=== PATIENT | male | born 1970 | race Caucasian/White ===

== ENCOUNTER → 2023-09-26 09:12 | Outpatient (REF) | payer BC, SELFPAY | LOC: REG 09:12 | PROVIDERS: ATTENDING PHYSICIAN Family Medicine | DX: E03.9 Hypothyroidism, unspecified (principal) | CPT/HCPCS: 36415; 84443 ==

== ENCOUNTER → 2024-02-06 07:51 | Outpatient (REF) | payer BC, SELFPAY ==
[2024-02-06 08:57] LABS: Uric Acid 6.5 mg/dl (3.5-8.5)
[2024-02-06 09:25] LABS: TSH 2.44 uIU/ml (0.47-4.68)
== END ==
LOC: REG 07:51
PROVIDERS: ATTENDING PHYSICIAN Specialist; FAMILY PHYSICIAN Family Medicine
DX: E79.0 Hyperuricemia without signs of inflammatory arthritis and tophaceous disease (principal); E03.9 Hypothyroidism, unspecified
CPT/HCPCS: 36415; 84443; 84550

== ENCOUNTER → 2024-06-04 08:45 | Outpatient (REF) | payer BC, SELFPAY ==
[2024-06-04 09:58] LABS: % Basophils 0.5 % (0-2); % Eosinophils 2.1 % (0-6); % Immature Granulocytes 0.2 % (0-0.5); % Lymphocytes 28.7 % (20.5-51.1); % Neutrophils 60.5 % (42.2-75.2); Absolute Eosinophils 0.1 10^3/uL (0-0.7); Absolute Lymphocytes 1.3 10^3/uL (1.2-3.4); Absolute Monocytes 0.4 10^3/uL (0.1-0.6); Absolute Neutrophils 2.6 10^3/uL (1.4-6.5); Hematocrit 45.7 % (39.0-52.0); Hemoglobin 15.9 g/dL (13.0-18.0); Mean Corp Hgb Conc. 34.8 g/dL (33.0-37.0); Mean Corpuscular Hgb 30.3 pg (27.0-31.0); Mean Corpuscular Volume 87.2 fL (80.0-94.0); Mean Platelet Volume 9.7 fL (7.4-10.4); Nucleated Red Blood Cells % 0 % (-); Platelet Count 200 10^3/uL (130-400); Red Blood Cell Count 5.24 10^6/uL (4.70-6.10); Red Cell Dist. Width 12.8 % (11.5-14.5); White Blood Cell Count 4.4 10^3/uL (4.8-10.8)
[2024-06-04 10:12] LABS: ALT (SGPT) 54 U/L (0-50); AST (SGOT) 39 U/L (17-59); Albumin 4.8 g/dl (3.5-5.0); Alkaline Phosphatase 71 U/L (38-126); Blood Urea Nitrogen 27 mg/dl (9-20); Calcium 10.3 mg/dl (8.4-10.2); Carbon Dioxide 29 mmol/L (22-30); Chloride 103 mmol/L (98-107); Glucose 108 mg/dl (70-99); HDL Cholesterol 67 mg/dl; LDL Cholesterol, Calculated 96 mg/dl; Potassium 4.3 mmol/L (3.5-5.1); Sodium 142 mmol/L (135-145); Total Bilirubin 0.8 mg/dl (0.2-1.3); Total Cholesterol 189 mg/dl (50-199); Total Protein 7.4 g/dl (6.3-8.2); Triglyceride 131 mg/dl (10-149); Uric Acid 6.5 mg/dl (3.5-8.5); Very Low Density Lipoprotein 26 mg/dl (0-30); eGFR 47.02
[2024-06-04 10:44] LABS: PSA, Total - Screen 2.62 ng/ml (0.0-4.0)
== END ==
LOC: REG 08:45
PROVIDERS: ATTENDING PHYSICIAN Family Medicine
DX: E03.9 Hypothyroidism, unspecified (principal); N18.31 Chronic kidney disease, stage 3a; E79.0 Hyperuricemia without signs of inflammatory arthritis and tophaceous disease; I10 Essential (primary) hypertension
CPT/HCPCS: 36415; 80053; 80061; 84443; 84550; 85025; G0103

== ENCOUNTER → 2024-10-28 12:37 | Outpatient (REF) | payer BC, SELFPAY | LOC: MRI 3T 12:37 | PROVIDERS: ATTENDING PHYSICIAN Physician Assistant Surgical; FAMILY PHYSICIAN Family Medicine | DX: S43.004A Unspecified dislocation of right shoulder joint, initial encounter (principal); S49.91XA Unspecified injury of right shoulder and upper arm, initial encounter | CPT/HCPCS: 73221 ==

== ENCOUNTER → 2024-10-28 13:46 | Outpatient (REF) | payer BC, SELFPAY | LOC: RAD 13:46 | PROVIDERS: ATTENDING PHYSICIAN Internal Medicine Critical Care Medicine; FAMILY PHYSICIAN Family Medicine | DX: R91.1 Solitary pulmonary nodule (principal) | CPT/HCPCS: 71046 ==

== ENCOUNTER 2024-10-31 20:27 | Emergency (ER) | payer BC, SELFPAY ==
[2024-10-31 20:29] VITALS: BP 144/86
--- NOTE | 2024-10-31 21:51 | ED.GENMED ---
History of Present Illness
General
Chief Complaint: DVT/Possible Blood Clot
Source: patient
Time Seen by Provider: 10/31/24 21:18
History of Present Illness
History of Present Illness:
54-year-old male with past medical history of hypertension, hyperlipidemia, hypothyroidism presenting to the emergency department for evaluation of right upper extremity paresthesia and edema in the setting of recently dislocated shoulder back in
August, has follow-up scheduled with Dr. Edwards towards the end of this month, patient stating he believes he will need surgery to prevent any further dislocations. He notes that he has been wearing his sling since the dislocation. Patient was concern
for DVT due to the after mentioned symptoms. Denies any history of similar. No new traumas to the affected area. No fevers or infectious symptoms.
Past History
Past History
ED Past Medical History: HTN, Hypercholesterolemia and Hypothyroidism; Negative IDDM or NIDDM
ED Past Surgical History: None
Social History
Tobacco: Non-smoker
Alcohol: None
Drug: None
Personal:
Living: with family
Employment: Employed (office work )
Review of Systems
Review of Systems
All Other Systems: ROS reviewed and negative except as documented in HPI and ROS
Phy Exam
Physical Exam
Physical Exam:
GENERAL: Alert , in no apparent distress
EYE: conjunctiva clear
Head: Normocephalic atraumatic
NECK: Supple,
ENT: mmm.
LUNGS: no acute respiratory distress
NEUROLOGICAL: Alert and oriented
SKIN: Warm and dry, skin intact.
MUSCULOSKELETAL: Right upper extremity: Patient holding arm adducted with elbow at 90 degrees and against his chest/abdomen. There does appear to be some mild nonpitting soft tissue swelling to the dorsum of the hand but patient has an easily
palpable radial pulse. Cap refills less than 2 seconds and sensation is grossly intact to light touch throughout
PSYCH: Normal and appropriate interaction.
Scores
Heart Failure Risk
Heart Failure Risk Score: Not Applicable
Heart Score for Chest Pain Patients
STEMI patient?: Not applicable
Withdrawal Assessment of Alcohol
Withdrawal Assessment Completed?: Not applicable
Course
Orders/Labs/Results
Orders:
Orders
10/31/24 20:34
Periph Venous Upr Ext Right US [US Periph Venous UPPER Ext RT] Urgent
Comment:
Reason For Exam: RIGHT ARM IMMOBILIZED SINCE 09/08 SWELLING TINGLING
Vital Signs
Initial and Last Documented VS:
Initial Vital Signs
Temp Resp BP Pulse Ox
97.6 F 20 144/86 98
10/31/24 20:29 10/31/24 20:29 10/31/24 20:29 10/31/24 20:29
Last Documented Vital Signs
Temp Resp BP Pulse Ox
97.6 F 20 144/86 98
10/31/24 20:29 10/31/24 20:29 10/31/24 20:29 10/31/24 21:52
MDM/Problems Addressed
Differential Diagnosis Includes:
Paresthesia from shoulder dislocation
Brachial Plexus injury
Peripheral neuropathy
DVT
Carpal Tunnel
Thoracic Outlet Syndrome
MDM/Problems Addressed:
54-year-old male presenting to the emergency department for evaluation of some swelling and paresthesia to the right upper extremity in the setting of a recently dislocated right shoulder. Patient has been wearing a sling to prevent further
dislocation/subluxation. Ultrasound was ordered from triage and is negative for DVT/SVT. Patient is otherwise neurovascularly intact. I do suspect most of his symptoms are all related to the shoulder dislocation, discussed possibility for
brachial plexus injury although there are no focal neurologic deficits to the extremity. Patient already has follow-up appointment with orthopedics scheduled. Continue using sling. Aware of return precautions.
*Radiology
Radiology exam reviewed: radiology read reviewed (Negative DVT)
*Pulse Oximetry
SaO2: 98
Oxygen Mode of Delivery: Room air
Patient hypoxic: no
*Critical Care Note
Total Time (30-74mins, 75-104mins- exclusive of procedures): Not Applicable
ED Attending Note
-
Portions of this chart may have been created with voice recognition software.� Occasional wrong word or��sound alike� substitutions may have occurred due to the inherent limitations of voice recognition software.
Discharge Plan
Departure
Patient Disposition: Home (Routine Discharge)
Date of Disposition: 10/31/24
Time of Disposition: 21:52
Patient with high blood pressure during this ER visit?: Yes
Discharge Problem:
Paresthesia of skin, Edema of right upper extremity
Instructions: Shoulder Dislocation (DC)
Prescriptions:
No Action
atorvastatin 10 MG tablet
20 mg PO DAILY
losartan 50 mg Tablet
50 mg PO DAILY
amlodipine 10 mg Tablet
10 mg PO DAILY
levothyroxine 125 mcg Capsule
125 mcg PO DAILY
Lumigan 0.01 % Drops
1 drp OPHTHALMIC (EYE) QPM
allopurinol 200 mg Tablet
200 mg PO DAILY
Referrals:
Francesco Quezada MD [Family Provider, Family Practice]
Interventions
Interventions:
*Risk Screen - Suicide Last Done: 10/31/24 20:29
*General Assessment Last Done: 10/31/24 21:50
*Neglect/Abuse Screening Last Done: 10/31/24 20:29
*ED- Fall Risk Assessment Last Done: 10/31/24 21:50
*ED COVID-19 Vaccine History Last Done: 10/31/24 21:50
*Nursing Disposition Last Done: 10/31/24 21:56
ED-Peripheral Vascular Assessment Last Done: 10/31/24 21:50
Discharge Date and Time
Discharge Date/Time: 10/31/24 21:56
Print Language: BRITISH
== END 2024-10-31 21:56 | disposition home or self-care (01) ==
LOC: EMR 20:27
PROVIDERS: EMERGENCY PHYSICIAN Emergency Medicine; FAMILY PHYSICIAN Family Medicine
DX: R20.2 Paresthesia of skin (principal); R60.0 Localized edema; I10 Essential (primary) hypertension; E78.00 Pure hypercholesterolemia, unspecified; E03.9 Hypothyroidism, unspecified
CPT/HCPCS: 99284; 93971

== ENCOUNTER 2024-12-23 08:32 | Outpatient (RCR) | payer BC, SELFPAY | END 2024-12-23 23:59 | disposition home or self-care (01) | LOC: RPT 08:32 | PROVIDERS: ATTENDING PHYSICIAN Specialist; FAMILY PHYSICIAN Family Medicine | DX: M24.411 Recurrent dislocation, right shoulder (principal); M75.121 Complete rotator cuff tear or rupture of right shoulder, not specified as traumatic; M75.01 Adhesive capsulitis of right shoulder; Z73.6 Limitation of activities due to disability; M25.511 Pain in right shoulder | CPT/HCPCS: 97010; 97110; 97140; 97162; 97530 ==

== ENCOUNTER 2025-01-18 13:22 | Outpatient (RCR) | payer BC, SELFPAY | END 2025-01-18 23:59 | disposition home or self-care (01) | LOC: RPT 13:22 | PROVIDERS: ATTENDING PHYSICIAN Specialist; FAMILY PHYSICIAN Family Medicine | DX: M24.411 Recurrent dislocation, right shoulder (principal); M75.121 Complete rotator cuff tear or rupture of right shoulder, not specified as traumatic; M75.01 Adhesive capsulitis of right shoulder; Z73.6 Limitation of activities due to disability; M25.511 Pain in right shoulder | CPT/HCPCS: 97010; 97110; 97140 ==

== ENCOUNTER 2025-02-15 06:34 | Outpatient (RCR) | payer BC, SELFPAY | END 2025-02-15 23:59 | disposition home or self-care (01) | LOC: RPT 06:34 | PROVIDERS: ATTENDING PHYSICIAN Specialist; FAMILY PHYSICIAN Family Medicine | DX: M24.411 Recurrent dislocation, right shoulder (principal); M75.121 Complete rotator cuff tear or rupture of right shoulder, not specified as traumatic; M75.01 Adhesive capsulitis of right shoulder; Z73.6 Limitation of activities due to disability; M25.511 Pain in right shoulder | CPT/HCPCS: 97010; 97110; 97140 ==